=== PATIENT | female | born 1985 | race American Indian/Alaskan Native ===

== ENCOUNTER 2020-08-14 14:24 | Emergency (ER) | payer MEDICAID ==
[2020-08-14 15:19] VITALS: BP 121/82
--- NOTE | 2020-08-14 15:32 | Emergency Department Report ---
- General Chief complaint: Abdominal Pain Stated complaint: WOUND CARE Source: patient Mode of arrival: Ambulatory Limitations: No Limitations - History of Present Illness Initial comments: 34-year-old -[place] female presents to the emergency room stating she has an open wound to her right lateral abdomen status post tummy tuck 1 month ago. Patient states that the wound started opening up. She has been trying to use peroxide and triple antibiotics with not much relief. Patient states that the pain is getting worse. Denies any fever chills no nausea no vomiting. Onset/Timin -: week(s) Tetanus Up to Date: yes Severity scale (0 -10): 8 Quality: aching, sharp Consistency: constant Improves with: none Worsens with: none Context: none Associated symptoms: denies other symptoms - Related Data Previous Rx's Medication Instructions Recorded Last Taken Type Fluconazole [Diflucan TAB] 200 mg PO QDAY #1 tablet 08/14/20 Unknown Rx cephALEXin [Keflex] 500 mg PO Q12HR 10 Days #20 cap 08/14/20 Unknown Rx Allergies Allergy/AdvReac Type Severity Reaction Status Date / Time No Known Allergies Allergy Unverified 09/28/16 12:34 Abscess Boil HPI - HPI Chief Complaint: Abdominal Pain Stated Complaint: WOUND [facility] Medications: Previous Rx's Medication Instructions Recorded Last Taken Type Fluconazole [Diflucan TAB] 200 mg PO QDAY #1 tablet 08/14/20 Unknown Rx cephALEXin [Keflex] 500 mg PO Q12HR 10 Days #20 cap 08/14/20 Unknown Rx Allergies/Adverse Reactions: Allergies Allergy/AdvReac Type Severity Reaction Status Date / Time No Known Allergies Allergy Unverified 09/28/16 12:34 ED Review of Systems ROS: Stated complaint: WOUND CARE Other details as noted in HPI Comment: All other systems reviewed and negative ED Past Medical Hx - Past Medical History Previous Medical History?: Yes Hx Asthma: Yes - Surgical History Past Surgical History?: No - Social History Smoking Status: Current Every Day Smoker Substance Use Type: None - Medications Home Medications: Home Medications Medication Instructions Recorded Confirmed Last Taken Type Fluconazole [Diflucan TAB] 200 mg PO QDAY #1 tablet 08/14/20 Unknown Rx cephALEXin [Keflex] 500 mg PO Q12HR 10 Days #20 cap 08/14/20 Unknown Rx ED Physical Exam - General Limitations: No Limitations General appearance: alert, in no apparent distress - Head Head exam: Present: atraumatic, normocephalic - Eye Eye exam: Present: normal appearance - ENT ENT exam: Present: mucous membranes moist - Neck Neck exam: Present: normal inspection, full ROM - Respiratory Respiratory exam: Absent: accessory muscle use - Back Exam Back exam: Present: normal inspection, full ROM - Neurological Exam Neurological exam: Present: alert, normal gait - Expanded Skin Exam Expanded Type of lesion: Present: other (Open wound) Distribution of rash: back Description of rash: Present: tenderness, erythematous, swelling, discharge ED Course Vital Signs 08/14/20 15:14 Temperature 99.4 F Pulse Rate 66 Respiratory 20 Rate Blood Pressure 121/82 O2 Sat by Pulse 98 Oximetry ED Medical Decision Making - Medical Decision Making 34-year-old -[place] female presents to the emergency room stating she has an open wound to her right lateral abdomen status post tummy tuck 1 month ago. Patient states that the wound started opening up. She has been trying to use peroxide and triple antibiotics with not much relief. Patient states that the pain is getting worse. Denies any fever chills no nausea no vomiting. Wound place with wet-to-dry. Discussed with patient I will place her on antibiotics she can follow-up with the wound care clinic. Pain medicine for Tylenol and ibuprofen [id number] as appropriate. Discussed with patient to use wet-to-dry until she follows up with the wound care clinic. Critical care attestation.: If time is entered above; I have spent that time in minutes in the direct care of this critically ill patient, excluding procedure time. ED Disposition Clinical Impression: Open wound of abdomen Qualifiers: Encounter type: initial encounter Qualified Code(s): S31.109A - Unspecified open wound of abdominal wall, unspecified quadrant without penetration into peritoneal cavity, initial encounter Disposition: DC-01 TO HOME OR SELFCARE Is pt being admited?: No Does the pt Need Aspirin: No Condition: Stable Instructions: Abdominal Pain (ED), Wound Care, Adult Additional Instructions: Complete antibiotics as prescribed pain medication as needed follow-up with the wound care clinic I have listed their information below for your convenience. Prescriptions: Fluconazole [Diflucan TAB] 200 mg PO QDAY #1 tablet cephALEXin [Keflex] 500 mg PO Q12HR 10 Days #20 cap Referrals: [facility]Outside[facility] - 3-5 Days
== END 2020-08-14 16:30 | disposition home or self-care (01) ==
LOC: ED 14:24
DX: S31.109A Unspecified open wound of abdominal wall, unspecified quadrant without penetration into peritoneal cavity, initial encounter (principal); J45.909 Unspecified asthma, uncomplicated; F17.200 Nicotine dependence, unspecified, uncomplicated; Z79.899 Other long term (current) drug therapy; X58.XXXA Exposure to other specified factors, initial encounter; Y93.89 Activity, other specified; Y92.89 Other specified places as the place of occurrence of the external cause; Y99.8 Other external cause status
CPT/HCPCS: 99281